=== PATIENT | female | born 1990 | race Caucasian/White ===

== ENCOUNTER 2018-10-09 00:23 | Emergency (ER) | payer MEDICAID | END 2018-10-09 01:05 | disposition left against medical advice (07) | LOC: ER 00:30 | DX: K08.89 Other specified disorders of teeth and supporting structures (principal); Z53.21 Procedure and treatment not carried out due to patient leaving prior to being seen by health care provider ==

== ENCOUNTER 2020-05-11 02:01 | Emergency (ER) | payer MEDICAID ==
[~2020-05-11] VITALS: Ht 188 cm; Wt 77.1 kg
[2020-05-11] MEDS ORDERED: ACETAMINOPHEN 325 MG TAB PO ONE (05:30)
[2020-05-11 05:31] VITALS: BP 134/91
== END 2020-05-11 05:45 | disposition home or self-care (01) ==
LOC: ER 02:03
DX: S02.5XXA Fracture of tooth (traumatic), initial encounter for closed fracture (principal); F17.210 Nicotine dependence, cigarettes, uncomplicated; K04.7 Periapical abscess without sinus; R03.0 Elevated blood-pressure reading, without diagnosis of hypertension; X58.XXXA Exposure to other specified factors, initial encounter; Y93.89 Activity, other specified; Y92.89 Other specified places as the place of occurrence of the external cause; Y99.8 Other external cause status

== ENCOUNTER 2021-01-30 15:21 | Emergency (ER) | payer MEDICAID ==
[~2021-01-30] VITALS: Ht 188 cm; Wt 79.4 kg
[2021-01-30 15:25] VITALS: BP 106/67
== END 2021-01-30 22:18 | disposition left against medical advice (07) ==
LOC: ER 15:21
DX: M25.572 Pain in left ankle and joints of left foot (principal); Z53.21 Procedure and treatment not carried out due to patient leaving prior to being seen by health care provider; W19.XXXA Unspecified fall, initial encounter; Y93.89 Activity, other specified; Y92.89 Other specified places as the place of occurrence of the external cause; Y99.8 Other external cause status
CPT/HCPCS: 73610